=== PATIENT | male | born 1970 | race Caucasian/White ===

== ENCOUNTER 2020-11-11 21:18 | Inpatient (IN) | payer BC ==
[2020-11-11 21:27] LABS: Glucose,Whole Blood 169 mg/dL (75-99)
[2020-11-11] MEDS ORDERED: HEPARIN SODIUM,PORCINE 5,000 UNIT/ML 1 ML VIAL IV STA (21:33)
[2020-11-11] MEDS ORDERED: ATORVASTATIN 80 MG TAB PO STA (21:34)
[2020-11-11 21:39] LABS: Basophils # (A) 0.1 k/uL (0-0.2); Basophils % (A) 1 %; Eosinophils # (A) 0.1 k/uL (0-0.7); Eosinophils % (A) 1 %; HCT 43.1 % (39.0-53.0); Lymphocytes # (A) 3.7 k/uL (1.0-4.8); Lymphocytes % (A) 33 %; MCH 31.1 pg (25.0-35.0); MCHC 32.5 g/dL (31.0-37.0); MCV 95.6 fL (80.0-100.0); Mean Platelet Volume 6.9; Monocytes # (A) 0.4 k/uL (0-1.0); Monocytes % (A) 4 %; Neutrophils # (A) 6.8 k/uL (1.3-7.7); Neutrophils % (A) 60 %; Platelet Count 313 k/uL (150-450); RBC 4.51 m/uL (4.30-5.90); RDW 13.1 % (11.5-15.5); WBC 11.3 k/uL (3.8-10.6)
[2020-11-11] MEDS ORDERED: NALOXONE 0.4 MG/ML 1 ML VIAL IV PRN (21:39)
--- NOTE | 2020-11-11 21:39 | ED ---
General Adult HPI - General Chief complaint: Chest Pain Stated complaint: STEMI Time Seen by Provider: 11/11/20 21:21 Source: patient, EMS Mode of arrival: EMS Limitations: no limitations - History of Present Illness Initial comments: Dictation was produced using [employer] dictation software. please excuse any grammatical, word or spelling errors. This patient was cared for during a federal and state declared state of emergency secondary to Covid 19 Chief Complaint: 50-year-old male with no significant past medical history presents with STEMI History of Present Illness: 50-year-old male at approximately 8 PM patient began experiencing substernal chest pain. States the pain goes across his chest radiates to his jaw and his bilateral upper extremities. Denies any numbness and paresthesias to his arms or legs. EMS was called and patient was brought to the emergency department. Patient denies any history of coronary artery di sease. EMS reports that STEMI was seen on initial EKG is given nitroglycerin when his blood pressure then began to decrease. Patient denies any sharp intense chest pain and rates his back. No numbness and paresthesias to his arms or legs. The ROS documented in this emergency department record has been reviewed and confirmed by me. Those systems with pertinent positive or negative responses h ave been documented in the HPI. All other systems are other negative and/or noncontributory. PHYSICAL EXAM: General Impression: Alert and oriented x3, not in acute distress HEENT: Normocephalic atraumatic, extra-ocular movements intact, pupils equal and reactive to light bilaterally, mucous membranes moist. Cardiovascular: Heart regular rate and rhythm Chest: Able to complete full sentences, no retractions, no tachypnea Abdomen: abdomen soft, non-tender, non-distended, no organomegaly Musculoskeletal: Pulses present and equal in all extremities, no peripheral edema Motor: no focal deficits noted Neurological: CN II-XII grossly intact, no focal motor or sensory deficits noted Skin: Intact with no visualized rashes Psych: Normal affect and mood ED course: 50-year-old male presents with ST segment elevation myocardial infarction as upon arrival shows findings within acceptable limits. EKG shows inferior and lateral STEMI. Code STEMI was paged prior to patient's arrival. He received aspirin prior to arriving to the emergency department. Patient disposition to the catheterization lab. EKG interpretation: Ventricular rate 60, sinus rhythm, QRS 90, QTC 408. No AR prolongation, no QTC prolongation. No ST segment elevation MO in inferior leads and septal lateral leads. Review of Systems ROS Statement: Those systems with pertinent positive or pertinent negative responses have been documented in the HPI. ROS Other: All systems not noted in ROS Statement are negative. Past Medical History Past Medical History: No Reported History History of Any Multi-Drug Resistant Organisms: None Reported Past Surgical History: No Surgical Hx Reported Past Psychological History: No Psychological Hx Reported Smoking Status: Current every day smoker Past Alcohol Use History: Daily Past Drug Use History: None Reported General Exam Limitations: no limitations Course Vital Signs 11/11/20 11/11/20 21:22 21:29 Temperature 97.9 F Pulse Rate 61 61 Respiratory 18 18 Rate Blood Pressure 104/68 115/80 O2 Sat by Pulse 100 100 Oximetry Medical Decision Making - Lab Data Lab Results 11/11/20 Range/Units 21:26 POC Glucose (mg/dL) 169 H (75-99) mg/dL POC Glu Claims Adjustor ID Tiffanie Juan Critical Care Time Critical Care Time: Yes Total Critical Care Time: 33 Disposition Clinical Impression: STEMI (ST elevation myocardial infarction) Disposition: ADMITTED IP TO THIS HOSP Condition: Critical Referrals: None,Stated [Primary Care Provider] - 1-2 days Decision Time: 21:39
[2020-11-11] MEDS ORDERED: VERAPAMIL 2.5 MG/ML 2 ML AMP ONE (21:43)
[2020-11-11] MEDS ORDERED: LIDOCAINE 1% INJ 10MG/ML (20 ML MDV) ONE (21:43)
[2020-11-11] MEDS ORDERED: fentaNYL (PF) 50 MCG/ML 2 ML AMP ONE (21:43)
[2020-11-11 21:44] LABS: Prothrombin Time 10.2 sec (9.0-12.0)
[2020-11-11] MEDS ORDERED: HEPARIN SOD,PORK IN 0.45% NACL 25,000 UNIT in 0.45% NACL 1 250ML.BAG IV SCH (21:45)
[2020-11-11 21:46] LABS: ALT 46 U/L (4-49); AST 52 U/L (17-59); African American GFR (CKD) >90 (>60 ml/min/1.73 sqM); Albumin 4.3 g/dL (3.5-5.0); Alkaline Phosphatase 69 U/L (38-126); Anion Gap 12 mmol/L; Blood Urea Nitrogen 16 mg/dL (9-20); Calcium 9.2 mg/dL (8.4-10.2); Carbon Dioxide 19 mmol/L (22-30); Chloride 106 mmol/L (98-107); Glucose 162 mg/dL (74-99); Non-African American GFR(CKD) 82 (>60 ml/min/1.73 sqM); Potassium 3.6 mmol/L (3.5-5.1); Sodium 137 mmol/L (137-145); Total Bilirubin 0.4 mg/dL (0.2-1.3); Total Protein 7.1 g/dL (6.3-8.2)
--- NOTE | 2020-11-11 21:46 | XR ---
EXAMINATION TYPE: XR chest 1V portable DATE OF EXAM: 11/11/2020 COMPARISON: NONE HISTORY: Heart attack. Chest pain TECHNIQUE: Single view FINDINGS: There is no heart failure nor confluent pneumonic infiltrate. Costophrenic angles are clear . There are no hilar masses. Bony thorax is intact. IMPRESSION: No active cardiopulmonary disease.
[2020-11-11] MEDS ORDERED: SODIUM CHLORIDE 0.9% 1,000 ML IV ONE (21:50)
[2020-11-11] MEDS ORDERED: LIDOCAINE 1% INJ 10MG/ML (20 ML MDV) SQ ONE (21:54)
[2020-11-11] MEDS ORDERED: fentaNYL (PF) 50 MCG/ML 2 ML AMP IV ONE (21:59)
[2020-11-11] MEDS ORDERED: MIDAZOLAM 2 MG/2 ML VIAL IV ONE (22:00)
[2020-11-11] MEDS ORDERED: VERAPAMIL SYRINGE (5 MG/10 ML) INTRAARTER ONE (22:01)
[2020-11-11] MEDS ORDERED: HEPARIN SODIUM 1,000 UN/ML (10ML VL) IV ONE (22:02)
[2020-11-11] MEDS ORDERED: PRASUGREL 10 MG TAB ONE (22:06)
[2020-11-11] MEDS ORDERED: PRASUGREL 10 MG TAB PO ONE (22:08)
[2020-11-11] MEDS ORDERED: NOREPINEPHRINE 4 MG in SODIUM CHLORIDE 0.9% 250 ML IV ONE (22:14)
[2020-11-11] MEDS ORDERED: IOPAMIDOL-370 125ML BTL INJ ONE (22:26)
[2020-11-11] MEDS ORDERED: IOPAMIDOL-370 100ML BTL INJ ONE ×2 (22:32)
--- NOTE | 2020-11-11 22:39 | CONS ---
CONSULTATION This is a 50-year-old male patient who presented with severe chest discomfort that started around 7:30 or 8 p.m. this evening. The patient came back from work and was at home. At around 7:30 he went to go to the bathroom and he just felt extremely weak, tired, hot, flushed, and felt his chest was burning and started having discomfort in his chest. The discomfort has been relentless since then. He came to the ER. The first EKG shows tall ST elevations in the inferior leads, ST depression consistent with a posterior infarction in V1, V2. In fact, ST segments are abnormal in all 12 leads. PAST HISTORY: No history of diabetes, hypertension or dyslipidemia that he knows of, but he does not see any physician. His primary care physician is Dr. Angelika Shahid. SOCIAL HISTORY: He is a current smoker. ALLERGIES: NO KNOWN DRUG ALLERGIES. SURGICAL HISTORY: No significant surgical history either. FAMILY HISTORY: Early heart attacks and need for coronary artery bypass grafting in his parents before the age of 50. REVIEW OF SYSTEMS: He has no fever but he felt a lot of chills. He was nauseous, sweaty, weak. No hematuria or dysuria. No strokes or seizures. No skin lesions. No musculoskeletal complaints. No dizziness. No loss of consciousness. Currently he is extremely uncomfortable and experiencing chest discomfort, feeling extremely hot but does not have fever. PHYSICAL EXAMINATION: On examination, blood pressure is 106/75 mmHg, pulse rate in the 60s. No arrhythmias. Head and neck examination is normal. No JVD. HEART: Sounds S1, S2 soft. No murmurs, no gallops, no rub. Breath sounds are clear. No rhonchi, no crackles. ABDOMEN: Soft, nontender. Extremities are warm. No edema. IMPRESSION: 1. Acute inferoposterior lateral myocardial infarction, extensive. Twelve out of [address] segments. 2. Current smoker. 3. Family history of early coronary artery disease. SUGGEST: IV heparin, aspirin, statins, pain medications and urgent transfer to the laborer high density press for coronary angiography. Dr. Guerrero was in the ER, too, and we will take him to the laborer high density press right away. I discussed this with the patient. He is agreeable with the plan. I will follow him as an outpatient. MMODL / IJN: [id number] /
[2020-11-11] MEDS ORDERED: ATROPINE SULFATE 0.1 MG/ML 10ML SYRINGE IV PRN (22:56)
[2020-11-11] MEDS ORDERED: MAG HYDROX/AL HYDROX/SIMETH 30 ML CUP PO PRN (22:56)
[2020-11-11] MEDS ORDERED: RX INFO: IV CONTRAST WAS GIVEN 1 EACH MISC MISCELLANE PRN (22:56)
[2020-11-11] MEDS ORDERED: NITROGLYCERIN SL TABS 0.4 MG TAB SUBLINGUAL PRN (22:56)
[2020-11-11] MEDS ORDERED: ZOLPIDEM 5 MG TAB PO PRN (22:56)
--- NOTE | 2020-11-11 22:56 | P.PRCINT ---
Percutaneous Coronary Int. - Percutaneous Coronary Intervention Percutaneous Coronary Intervention: PROCEDURES PERFORMED: Left heart catheterization, bilateral coronary angiography, PCI of proximal RCA with a 4.0 x 23 mm Xience TYLOR stent INDICATION: Inferior STEMI HISTORY: Patient is a pleasant 50-year-old male with a history of tobacco abuse who presents secondary chest pain that started approximately an hour and a half before arrival. Patient admitted to associated nausea, shortness breath and pressure sensation. Patient was found to have inferior STEMI and laboratory worker was activated. CONSENT:I have discussed the risks, benefits and alternative therapies for the above-mentioned procedure and for both sedation/analgesia as well as necessary blood product administration, if indicated, as they pertain to this patient. The patient has indicated understanding and acceptance of the risks and procedures discussed. PROCEDURE: After the risks, benefits and alternatives of the above mentioned procedure explained in detail with the patient, informed consent was obtained. Patient was taken to the catheterization lab and prepped and draped in usual fashion. 1% lidocaine was used to anesthetize the right radial artery. A 6- Bangladeshi sheath was placed in the right radial artery using modified Seldinger technique. Right coronary angiography was performed with a 6-Bangladeshi AL 0.75 guide. A decision was made to intervene on the RCA. Heparin was given for an ACT greater than 250. A 0.014 BMW wire was placed in the distal vessel. Next predilation was performed using a 2.5 x 12 mm balloon. A 4.0 x 23 mm Xience TYLOR stent was then placed. Patient did have hypotension after stent placement and there was consideration that this may have been due to thrombus in the acute marginal branch. Therefore Levophed was started and a second 0.014 BMW wire was advanced into the acute marginal branch with the 2.5 mm balloon advanced to a breakup thrombus. This did appear to breakup thrombus and no angioplasty was performed. His blood pressure did improve. The proximal portion of the stent was postdilated with a 4.0 x 12 mm noncompliant balloon. Angiograms were obtained in multiple views. Pre intervention there was 100% stenosis and KUN 0 flow and post intervention there was 0% residual stenosis and KUN 3 flow and no evidence of any dissection. The wire was then removed and final angiograms were obtained. The radial sheath was pulled and a TR band was placed with hemostasis achieved. The vasopressors were weaned and patient was hemodynamically stable by the time he left the Control Room Technician. The patient tolerated the procedure well. The patient was transferred to the post catheterization holding area in stable condition. Conscious Sedation: Patient was monitored under the direct supervision of vision of myself for conscious sedation using Versed and fentanyl for a total duration of 45 minutes HEMODYNAMICS: Aortic: 97/54 LV: 112/11, LVEDP 21 mmHg SELECTIVE CORONARY ARTERIOGRAPHY: LEFT MAIN: The left main is a large caliber vessel which bifurcates into the LAD and circumflex. There is no significant stenosis. LEFT ANTERIOR DESCENDING CORONARY ARTERY: LAD is a large caliber vessel which wraps around to the apex. There is mid LAD 30% stenosis. LEFT CIRCUMFLEX CORONARY ARTERY: Left circumflex is a moderate caliber vessel with a mid 30-40% circumflex stenosis. RIGHT CORONARY ARTERY: The right coronary artery is a large caliber vessel which gives off a PDA and PLV branch and is the dominant vessel. There is a proximal 100% stenosis and otherwise no significant stenosis. FINAL IMPRESSION: 1. Coronary artery disease as described above with 100% RCA stenosis and other mild disease of the left system 2. PCI of proximal RCA with a 4.0 x 23 mm Xience TYLOR stent 3. Temporary hypotension improved with vasopressors PLAN: 1. Aggressive risk factor modification per most recent ACC/AHA guidelines. 2. Tobacco cessation 3. Continue dual antiplatelets for 12 months
[2020-11-11 23:32] LABS: Glucose,Whole Blood 121 mg/dL (75-99)
--- NOTE | 2020-11-12 00:22 | P.HPIM ---
History of Present Illness H&P Date: 11/12/20 The patient is a 50-year-old male with a PMH of tobacco abuse who presented to the emergency room with complaints of chest discomfort. The patient reports that he was in his usual state of health until about 7 PM tonight when he suddenly developed pressure-like substernal 8 out of 10 discomfort. The pain was radiating to his jaw with associated nausea, vomiting, shortness of breath, and dizziness. The patient proceeded to sit on the floor in his bathroom next 2 the toilet due to nausea but did not have any episodes of vomiting. He subsequently told his who gave him an aspirin to chew on an activated EMS. EKG in the emergency room revealed an inferior wall ST elevation MA at 60 bpm. Cardiology was consulted and the patient was immediately taken to the cardiac Offset Plate Preparation Supervisor where he was found to have 100% stenosis of the RCA with subsequent stenting. Patient was seen postoperatively in the medical ICU. He reported no further chest discomfort and felt back to his baseline. He denied any additional complaints including nausea, vomiting, shortness of breath, or dizziness. Review of Systems Pertinent positives and negatives as discussed in HPI, a complete review of systems was performed and all other systems are negative. Past Medical History Past Medical History: No Reported History History of Any Multi-Drug Resistant Organisms: None Reported Past Surgical History: No Surgical Hx Reported Past Psychological History: No Psychological Hx Reported Smoking Status: Current every day smoker Past Alcohol Use History: Daily Past Drug Use History: None Reported Medications and Allergies Home Medications Medication Instructions Recorded Confirmed Type No Known Home Medications 11/11/20 11/11/20 History Allergies Allergy/AdvReac Type Severity Reaction Status Date / Time No Known Allergies Allergy Unverified 11/11/20 21:39 Physical Exam Vitals: Vital Signs Temp Pulse Resp BP Pulse Ox 11/11/20 21:38 66 18 106/74 100 11/11/20 21:29 61 18 115/80 100 11/11/20 21:22 97.9 F 61 18 104/68 100 Intake and Output 11/11/20 11/11/20 11/12/20 14:59 22:59 06:59 Intake Total 511 Balance 511 Intake: IV 511 Other: Weight 90.718 kg General: non toxic, no distress, appears at stated age, normal weight Derm: no unusual rashes/lesions no unusual ecchymoses, warm, dry Head: atraumatic, normocephalic, symmetric Eyes: EOMI, no lid lag, anicteric sclera, pupils equal round reactive to light ENT: Nose and ears atraumatic, no thrush, no pharyngeal erythema Neck: No thyromegaly, no cervical lymphadenopathy, trachea midline, supple Mouth: no lip lesion, mucus membranes moist Cardiovascular: S1S2 reg, no murmur, positive posterior tibial pulse bilateral, no edema, capillary refill less than 2 seconds Lungs: CTA bilateral, no rhonchi, no rales , no accessory muscle use Abdominal: soft, nontender to palpation, no guarding, no appreciable o rganomegaly, normal bowel sounds Ext: no gross muscle atrophy, muscle strength 5 out of 5 in all 4 extremities grossly, no contractures, Neuro: CN II-XI grossly intact, light touch intact all 4 extremities, finger to nose within normal limits, Psych: Alert, oriented, appropriate affect Results CBC & Chem 7: 11/11/20 21:36 11/11/20 21:36 Labs: Abnormal Lab Results - Last 24 Hours (Table) 11/11/20 11/11/20 11/11/20 Range/Units 21:26 21:36 21:36 WBC 11.3 H (3.8-10.6) k/uL Carbon Dioxide 19 L (22-30) mmol/L Glucose 162 H (74-99) mg/dL POC Glucose (mg/dL) 169 H (75-99) mg/dL 11/11/20 Range/Units 23:29 WBC (3.8-10.6) k/uL Carbon Dioxide (22-30) mmol/L Glucose (74-99) mg/dL POC Glucose (mg/dL) 121 H (75-99) mg/dL Assessment and Plan Plan: ST elevation MA status post PCI to RCA -Cardiology recommendations appreciated -Continue cardiac monitoring -Continue with aspirin and Effient -Continue with Lipitor and Lopressor -Obtain A1c and lipid panel -Patient strongly advised on the importance of tobacco cessation Leukocytosis -No signs of active infection at this time -Likely secondary to acute stressor DVT prophylaxis -Heparin subq The patient is admitted with an anticipated greater than 2 midnight stay for evaluation of STEMI CODE STATUS: Full Code Discussed with: Patient Anticipated discharge date: 2-[address]: Home A total of 35 minutes was spent on the care of this complex patient more than 50% of the time was spent in counseling and care coordination.
[2020-11-12] MEDS ORDERED: SODIUM CHLORIDE 0.9% 1,000 ML IV SCH (01:15)
[2020-11-12 04:39] LABS: Basophils % (A) 0 %; Eosinophils # (A) 0.1 k/uL (0-0.7); Eosinophils % (A) 1 %; HCT 42.6 % (39.0-53.0); HGB 13.6 gm/dL (13.0-17.5); Lymphocytes # (A) 2.4 k/uL (1.0-4.8); Lymphocytes % (A) 25 %; MCH 30.8 pg (25.0-35.0); MCV 96.2 fL (80.0-100.0); Mean Platelet Volume 7.1; Monocytes # (A) 0.5 k/uL (0-1.0); Monocytes % (A) 5 %; Neutrophils # (A) 6.7 k/uL (1.3-7.7); Neutrophils % (A) 68 %; Platelet Count 276 k/uL (150-450); RBC 4.43 m/uL (4.30-5.90); RDW 13.1 % (11.5-15.5); WBC 9.7 k/uL (3.8-10.6)
[2020-11-12 04:51] LABS: African American GFR (CKD) >90 (>60 ml/min/1.73 sqM); Anion Gap 3 mmol/L; Blood Urea Nitrogen 16 mg/dL (9-20); Calcium 8.9 mg/dL (8.4-10.2); Carbon Dioxide 25 mmol/L (22-30); Chloride 108 mmol/L (98-107); Glucose 122 mg/dL (74-99); Non-African American GFR(CKD) >90 (>60 ml/min/1.73 sqM); Potassium 4.6 mmol/L (3.5-5.1); Sodium 136 mmol/L (137-145)
[2020-11-12 06:59] LABS: Cholesterol 207 mg/dL (<200); HDL Cholesterol 32 mg/dL (40-60); LDL Cholesterol,Calculated 130 mg/dL (0-99); Triglycerides 223 mg/dL (<150)
[2020-11-12] MEDS: ASPIRIN 81 MG PO SCH (08:10)
[2020-11-12] MEDS: METOPROLOL TARTRATE 25 MG TAB PO SCH ×2 (08:10→20:42)
[2020-11-12 09:25] VITALS: BMI 27.3
[2020-11-12 14:29] LABS: Hemoglobin A1C 6.1 % (4.0-6.0)
--- NOTE | 2020-11-12 16:36 | ECHOF ---
Referral Reason:STEMI, CHF MEASUREMENTS -------- HEIGHT: 182.9 cm WEIGHT: 91.2 kg BP: RVIDd: 2.9 cm (< 3.3) IVSd: 1.1 cm (0.6 - 1.1) LVIDd: 4.1 cm (3.9 - 5.3) LVPWd: 1.4 cm (0.6 - 1.1) IVSs: 1.4 cm LVIDs: 3.5 cm LVPWs: 1.6 cm LAESV Index (A-L): 20.56 ml/m Ao Diam: 2.8 cm (2.0 - 3.7) AV Cusp: 1.9 cm (1.5 - 2.6) MV EXCURSION: 19.523 mm (> 18.000) MV EF SLOPE: 79 mm/s (70 - 150) EPSS: 0.2 cm MV E Soy: 0.65 m/s MV DecT: 192 ms MV A Soy: 0.47 m/s MV E/A Ratio: 1.39 FINDINGS -------- Sinus rhythm. This was a technically good study. The left ventricular size is normal. Overall left ventricular systolic function is mildly impaired with, an EF between 45 - 50 %. Basal inferior LV wall motion is hypokinetic. The right ventricle is normal in size. Normal LA size by volume 22+/-6 ml/m2. The right atrial size is normal. There is mild aortic valve sclerosis. There is no evidence of aortic regurgitation. Mild mitral regurgitation is present. Mild tricuspid regurgitation present. Right ventricular systolic pressure is normal at < 35 mmHg. There is no pulmonic regurgitation present. The aortic root size is normal. There is no pericardial effusion. CONCLUSIONS -------- 1. The left ventricular size is normal. 2. Overall left ventricular systolic function is mildly impaired with, an EF between 45 - 50 %. 3. Basal inferior LV wall motion is hypokinetic. 4. The right ventricle is normal in size. 5. Normal LA size by volume 22+/-6 ml/m2. 6. The right atrial size is normal. 7. There is mild aortic valve sclerosis. 8. Mild mitral regurgitation is present. 9. Mild tricuspid regurgitation present. 10. The aortic root size is normal. 11. There is no pericardial effusion. ALGEBRA TUTOR: Kina Mckee RDCS
--- NOTE | 2020-11-12 16:41 | P.PN ---
Subjective HISTORY OF PRESENTING ILLNESS Patient is a pleasant 50-year-old male with history of tobacco abuse who had presented with substernal chest pain approximately 1.5 hours prior to arrival and was found to have inferior STEMI. Patient was taken to the Lead Teller where he had PCI of his proximal RCA. He did have temporary hypotension however this improved with we will set. His chest pain improved after stenting and he states he did well overnight. He denies any chest pain, shortness breath. Patient was started on aspirin and Effient. Denies any hematochezia or melena. PHYSICAL EXAMINATION Blood pressure 101/67 heart rate 61 afebrile and maintaining oxygen saturation on room air. CONSTITUTIONAL: No apparent distress. HEENT: Head is normocephalic. Pupils are equal, round. Sclerae anicteric. Mucous membranes of the mouth are moist. No JVD. No carotid bruit. CHEST EXAMINATION: Lungs are clear to auscultation. No chest wall tenderness is noted on palpation or with deep breathing. HEART EXAMINATION: Regular rate and rhythm. S1, S2 heard. No murmurs, gallops or rub. ABDOMEN: Soft, nontender. Positive bowel sounds. EXTREMITIES: 2+ peripheral pulses, no lower extremity edema and no calf tenderness. NEUROLOGIC EXAMINATION: Patient is awake, alert and oriented x3. ASSESSMENT 1. Inferior STEMI 2. Coronary artery disease status post PCI of the RCA, mild disease elsewhere 3. Mildly elevated LVEDP 4. Tobacco abuse 5. Hyperlipidemia PLAN Continue dual antiplatelets for 12 months. Patient has been doing well overnight. Continue with beta fernando and Lipitor. Hopeful discharge tomorrow if remains stable. Echocardiogram reviewed with mildly reduced ejection fraction 45-50% and inferior hypokinesis. Patient is stable for discharge out of ICU. Objective - Vital Signs Vital signs: Vital Signs Temp 98.7 F 11/12/20 14:00 Pulse 61 11/12/20 14:00 Resp 18 11/12/20 14:00 BP 101/67 11/12/20 14:00 Pulse Ox 98 11/12/20 14:00 Intake & Output 11/11/20 11/12/20 11/12/20 18:59 06:59 18:59 Intake Total 961 260 Output Total 750 0 Balance 211 260 Weight 91.4 kg 91.4 kg Intake: IV 961 260 Sodium Chloride 0.9% 1, 450 260 000 ml @ 50 mls/hr IV . Q20H [facility] Rx#:[id number] Output: Urine 750 0 Other: Voiding Method Urinal - Labs CBC & Chem 7: 11/12/20 04:12 11/12/20 04:12 Labs: Abnormal Lab Results - Last 24 Hours (Table) 11/11/20 11/11/20 11/11/20 Range/Units 21:26 21:36 21:36 WBC 11.3 H (3.8-10.6) k/uL Sodium (137-145) mmol/L Chloride (98-107) mmol/L Carbon Dioxide 19 L (22-30) mmol/L Glucose 162 H (74-99) mg/dL POC Glucose (mg/dL) 169 H (75-99) mg/dL Hemoglobin A1c (4.0-6.0) % Triglycerides (<150) mg/dL Cholesterol (<200) mg/dL LDL Cholesterol, Calc (0-99) mg/dL HDL Cholesterol (40-60) mg/dL 11/11/20 11/12/20 11/12/20 Range/Units 23:29 04:12 04:12 WBC (3.8-10.6) k/uL Sodium 136 L (137-145) mmol/L Chloride 108 H (98-107) mmol/L Carbon Dioxide (22-30) mmol/L Glucose 122 H (74-99) mg/dL POC Glucose (mg/dL) 121 H (75-99) mg/dL Hemoglobin A1c 6.1 H (4.0-6.0) % Triglycerides 223 H (<150) mg/dL Cholesterol 207 H (<200) mg/dL LDL Cholesterol, Calc 130 H (0-99) mg/dL HDL Cholesterol 32 L (40-60) mg/dL
--- NOTE | 2020-11-12 18:51 | P.PN ---
Subjective Progress Note Date: 11/12/20 (delayed charting seen at 1045) Principal diagnosis: chest pain Patient is a 50-year-old male with no known past medical history who presented to the emergency Department complaints of chest discomfort. In the ER he was found have an ST segment elevated myocardial infarction on EKG. He was subsequently taken to the cardiac Bunk House Worker where he under with successful stenting of 100% lesion of the RCA. He was subsequently transitioned to the ICU. He was started on ASA, Effient, and lopressor. His cholesterol level came back elevated. Echo showed and EF of 45-50%. Patient seen and examined at bedside. H denies any chest pain, SOB, nausea, dizziness. General: non toxic, no distress, appears at stated age Derm: warm, dry Head: atraumatic, normocephalic, symmetric Eyes: EOMI, no lid lag, anicteric sclera Mouth: no lip lesion, mucus membranes moist Cardiovascular: S1S2 reg, no murmur, positive posterior tibial pulse bilateral, Lungs: CTA bilateral, no rhonchi, no rales , no accessory muscle use Abdominal: soft, nontender to palpation, no guarding, no appreciable org anomegaly Ext: no gross muscle atrophy, no edema, no contractures Neuro: CN II-XI grossly intact, no focal neuro deficits Psych: Alert, oriented, appropriate affect ST segment elevated myocardial infarction, inferior wall, coronary artery disease status post PCI to the RCA - ASA, statin, BB - Cardio recs - Echo with mildly reduced EF 45% will need follow-up no signs of heart failure HLD - Statin Mildly elevated A1C - D/W patient will need PCP follow-up likely Dr. López in [place]. Tobacco abuse - cessation DVT prophylaxis: SCDs Discussed with: Patient, nursing Anticipated discharge: in AM Anticipated discharge place: home A total of 25 minutes was spent on the care of this complex patient more than 50% of the time was spent in counseling and care coordination. Objective - Vital Signs Vital signs: Vital Signs Temp 98.8 F 11/12/20 16:00 Pulse 72 11/12/20 16:00 Resp 18 11/12/20 16:00 BP 103/59 11/12/20 16:00 Pulse Ox 97 11/12/20 16:00 Intake & Output 11/11/20 11/12/20 11/12/20 18:59 06:59 18:59 Intake Total 961 500 Output Total 750 0 Balance 211 500 Weight 91.4 kg 91.4 kg Intake: IV 961 260 Sodium Chloride 0.9% 1, 450 260 000 ml @ 50 mls/hr IV . Q20H [facility] Rx#:[id number] Oral 240 Output: Urine 750 0 Other: Voiding Method Urinal - Labs CBC & Chem 7: 11/12/20 04:12 11/12/20 04:12 Labs: Abnormal Lab Results - Last 24 Hours (Table) 11/11/20 11/11/20 11/11/20 Range/Units 21:26 21:36 21:36 WBC 11.3 H (3.8-10.6) k/uL Sodium (137-145) mmol/L Chloride (98-107) mmol/L Carbon Dioxide 19 L (22-30) mmol/L Glucose 162 H (74-99) mg/dL POC Glucose (mg/dL) 169 H (75-99) mg/dL Hemoglobin A1c (4.0-6.0) % Triglycerides (<150) mg/dL Cholesterol (<200) mg/dL LDL Cholesterol, Calc (0-99) mg/dL HDL Cholesterol (40-60) mg/dL 11/11/20 11/12/20 11/12/20 Range/Units 23:29 04:12 04:12 WBC (3.8-10.6) k/uL Sodium 136 L (137-145) mmol/L Chloride 108 H (98-107) mmol/L Carbon Dioxide (22-30) mmol/L Glucose 122 H (74-99) mg/dL POC Glucose (mg/dL) 121 H (75-99) mg/dL Hemoglobin A1c 6.1 H (4.0-6.0) % Triglycerides 223 H (<150) mg/dL Cholesterol 207 H (<200) mg/dL LDL Cholesterol, Calc 130 H (0-99) mg/dL HDL Cholesterol 32 L (40-60) mg/dL
[2020-11-12] MEDS: PRASUGREL 10 MG TAB PO SCH (20:42)
[2020-11-12] MEDS ORDERED: ATORVASTATIN 80 MG TAB PO SCH (21:00)
[2020-11-13 07:27] LABS: African American GFR (CKD) >90 (>60 ml/min/1.73 sqM); Anion Gap 3 mmol/L; Blood Urea Nitrogen 16 mg/dL (9-20); Calcium 8.8 mg/dL (8.4-10.2); Carbon Dioxide 24 mmol/L (22-30); Chloride 110 mmol/L (98-107); Glucose 114 mg/dL (74-99); Non-African American GFR(CKD) 90 (>60 ml/min/1.73 sqM); Potassium 4.6 mmol/L (3.5-5.1); Sodium 137 mmol/L (137-145)
[2020-11-13] MEDS: PRASUGREL 10 MG TAB PO SCH (07:54)
[2020-11-13] MEDS: ASPIRIN 81 MG PO SCH (07:54)
[2020-11-13] MEDS: METOPROLOL TARTRATE 25 MG TAB PO SCH (07:54)
[2020-11-13 11:34] VITALS: BP 97/62; PULSE 53; RESP 16; TEMP 98
--- NOTE | 2020-11-13 11:59 | P.PN ---
Subjective HISTORY OF PRESENTING ILLNESS Patient is a pleasant 50-year-old male with history of tobacco abuse who had presented with substernal chest pain approximately 1.5 hours prior to arrival and was found to have inferior STEMI. Patient was taken to the Adjunct Communications Faculty Member where he had PCI of his proximal RCA. He did have temporary hypotension however this improved with we will set. His chest pain improved after stenting and he states he did well overnight. He denies any chest pain, shortness breath. Patient was started on aspirin and Effient. Denies any hematochezia or melena. 11/13/2020 Patient was seen and examined resting comfortably laying flat in bed in no acute distress. HEENT denies symptoms of chest pain, shortness of breath, dizziness or palpitations. Blood pressure 97/62 heart rate 53 afebrile maintaining oxygen saturation on room air. Laboratory data reviewed, sodium 137, potassium 4.6, creatinine 0.98. Currently maintained on Effient 10 mg daily, metoprolol 25 mg twice a day, atorvastatin 80 mg at bedtime and aspirin 81 mg daily. PHYSICAL EXAMINATION CONSTITUTIONAL: No apparent distress. HEENT: Head is normocephalic. Pupils are equal, round. Sclerae anicteric. Mucous membranes of the mouth are moist. No JVD. No carotid bruit. CHEST EXAMINATION: Lungs are clear to auscultation. No chest wall tenderness is noted on palpation or with deep breathing. HEART EXAMINATION: Regular rate and rhythm. S1, S2 heard. No murmurs, gallops or rub. EXTREMITIES: 2+ peripheral pulses, no lower extremity edema and no calf tenderness. ASSESSMENT 1. Inferior STEMI 2. Coronary artery disease status post PCI of the RCA, mild disease elsewhere 3. Mildly elevated LVEDP 4. Tobacco abuse 5. Hyperlipidemia PLAN Continue dual antiplatelets for 12 months. Continue with beta fernando and Lipitor. No MELVIN/ARB secondary to low blood pressures, we will reassess as an outpatient. Stable for discharge, follow up with Dr. Guerrero in 1-week. Nurse Practitioner note has been reviewed, I agree with a documented findings and plan of care. Patient was seen and examined. Objective - Vital Signs Vital signs: Vital Signs Temp 98 F 11/13/20 11:33 Pulse 53 L 11/13/20 11:33 Resp 16 11/13/20 11:33 BP 97/62 11/13/20 11:33 Pulse Ox 97 11/13/20 11:33 Intake & Output 11/12/20 11/13/20 11/13/20 18:59 06:59 18:59 Intake Total 500 1242 240 Output Total 0 Balance 500 1242 240 Weight 91.4 kg 91.6 kg Intake: IV 260 Sodium Chloride 0.9% 1, 260 000 ml @ 50 mls/hr IV . Q20H ALEX Rx#:[id number] Oral 240 1242 240 Output: Urine 0 Other: Voiding Method Urinal Urinal Urinal # Voids 1 - Labs CBC & Chem 7: 11/12/20 04:12 11/13/20 06:35 Labs: Abnormal Lab Results - Last 24 Hours (Table) 11/12/20 11/13/20 Range/Units 04:12 06:35 Chloride 110 H (98-107) mmol/L Glucose 114 H (74-99) mg/dL Hemoglobin A1c 6.1 H (4.0-6.0) %
--- NOTE | 2020-11-13 14:19 | P.DS ---
Providers Date of admission: 11/11/20 21:39 Expected date of discharge: 11/13/20 Attending physician: Екатерина Angel MD Consults: 11/11/20 21:33 Consult Physician Stat Consulting Provider: Gerardo Garza Consult Reason/Comments: STEMI ACTIVATION COMPLETE Do you want consulting provider notified?: Yes 11/11/20 22:57 Consult Physician Routine Consulting Provider: Cardiology Greg Consult Reason/Comments: Post Interventional patient Do you want consulting provider notified?: Already Contacted Primary care physician: Stated None Hospital Course: Discharge Diagnosis: STEMI, inferior wall HLD Mildly elevated A1C Tobacco abuse. Hospital Course: Patient is a 50-year-old male with no known past medical history who presented to the emergency Department complaints of chest discomfort. In the ER he was found have an ST segment elevated myocardial infarction on EKG. He was subsequently taken to the cardiac Search Marketing Analyst where he under with successful stenting of 100% lesion of the RCA. He was subsequently transitioned to the ICU. He was started on ASA, Effient, and lopressor. His cholesterol level came back elevated. Echo showed and EF of 45-50%. He continued to do well. He was determined stable for discharge home. He will follow-up with Dr. Bautista for his primary care physician, and Dr. Guerrero for cardiology in 1 week. He will stay off of work until cleared by Dr. Guerrero. He was counseled on the importance of stopping smoking. Patient informed mildly elevated A1C of 6.1 which will need to be followed. he was instructed to take all medications as prescribed. Patient seen and examined at bedside. Denies any chest pain, shortness breath, nausea, vomiting. No lightheadedness or dizziness. Vital signs reviewed and stable. General: non toxic, no distress, appears at stated age Derm: warm, dry Head: atraumatic, normocephalic, symmetric Eyes: EOMI, no lid lag, anicteric sclera Mouth: no lip lesion, mucus membranes moist Cardiovascular: S1S2 reg, no murmur, positive posterior tibial pulse bilateral, Lungs: CTA bilateral, no rhonchi, no rales , no accessory muscle use Abdominal: soft, nontender to palpation, no guarding, no appreciable organomegaly Ext: no gross muscle atrophy, no edema, no contractures Neuro: CN II-XI grossly intact, no focal neuro deficits Psych: Alert, oriented, appropriate affect A total of 25 minutes of time were spent preparing this complex discharge summary . Patient Condition at Discharge: Stable Plan - Discharge Summary Discharge Rx Participant: Yes New Discharge Prescriptions: New Aspirin 81 mg PO DAILY chew Prasugrel [Effient] 10 mg PO DAILY #90 tab Atorvastatin [Lipitor] 80 mg PO HS #90 tab Metoprolol Tartrate [Lopressor] 25 mg PO BID #180 tab Nitroglycerin Sl Tabs [Nitrostat] 0.4 mg SUBLINGUAL Q5M PRN #1 bottle PRN Reason: Chest Pain Discharge Medication List Aspirin 81 mg PO DAILY chew 11/13/20 [Rx] Atorvastatin [Lipitor] 80 mg PO HS #90 tab 11/13/20 [Rx] Metoprolol Tartrate [Lopressor] 25 mg PO BID #180 tab 11/13/20 [Rx] Nitroglycerin Sl Tabs [Nitrostat] 0.4 mg SUBLINGUAL Q5M PRN #1 bottle 11/13/20 [Rx] Prasugrel [Effient] 10 mg PO DAILY #90 tab 11/13/20 [Rx] Follow up Appointment(s)/Referral(s): Grace Bautista MD [Medical Doctor] - 1-2 Days Keith Guerrero DO [STAFF PHYSICIAN] - 1 Week Patient Instructions/Handouts: *Surgery [facility] - After Heart Catheterization - Packager Machine Instructions, Heart Attack (DC)
== END 2020-11-13 14:35 | disposition home or self-care (01) | DRG 247 ==
LOC: EC 21:18 → 2SICU 21:39 → 3SCARD 11-12 12:47
PROVIDERS: ADMIT Internal Medicine; ATTEND Internal Medicine
PROC: 027034Z Dilation of Coronary Artery, One Artery with Drug-eluting Intraluminal Device, Percutaneous Approach (ICD-10-PCS; principal; 2020-11-11 21:42)
PROC: 3E033XZ Introduction of Vasopressor into Peripheral Vein, Percutaneous Approach (ICD-10-PCS; principal; 2020-11-11 21:42)
PROC: 4A023N7 Measurement of Cardiac Sampling and Pressure, Left Heart, Percutaneous Approach (ICD-10-PCS; principal; 2020-11-11 21:42)
PROC: B2111ZZ Fluoroscopy of Multiple Coronary Arteries using Low Osmolar Contrast (ICD-10-PCS; principal; 2020-11-11 21:42)
DX: I21.19 ST elevation (STEMI) myocardial infarction involving other coronary artery of inferior wall (principal); I25.10 Atherosclerotic heart disease of native coronary artery without angina pectoris; E78.5 Hyperlipidemia, unspecified; F17.200 Nicotine dependence, unspecified, uncomplicated; I95.89 Other hypotension; Z79.02 Long term (current) use of antithrombotics/antiplatelets; Z79.82 Long term (current) use of aspirin; Z79.899 Other long term (current) drug therapy; Z82.49 Family history of ischemic heart disease and other diseases of the circulatory system
CPT/HCPCS: 36415; 71045; 80048; 80053; 80061; 83036; 84484; 85025; 85610; 85730; 93005; 93306; 93458; 94660; 96374; 99291